=== PATIENT | female | born 2000 | race Caucasian/White ===

== ENCOUNTER 2022-07-06 17:00 | Emergency (ER) | payer MEDICAID, SELFPAY ==
[2022-07-06 17:18] VITALS: BP 120/82; PULSE 124; RESP 18; TEMP 36.3; O2SAT 98; BMI 25.6
--- NOTE | 2022-07-06 17:59 | ED_ITS ---
HPI - Psych General Chief Complaint: Psychiatric Problem/Disorder Stated Complaint: Mental Health Time Seen by Provider: 07/06/22 17:34 History of Present Illness HPI Narrative: This 22-year-old female comes in with depression and anxiety symptoms. She has had ongoing depression symptoms but things have worsened significantly in the last week as her boyfriend broke up with her. She had plans to take a semester off from her school in [facility] and stay with his family and work on her mental health and now these plans have been forced to change. She did state to a therapist that she has some thoughts of suicide but she does not have any specific plan and has never attempted to harm herself to end her life in the past. She states that she has done some self-harm for other reasons but no such actions currently. She is tearful and persistently crying over her circumstances. She states that she is sleeping too much. She denies using alcohol or street drugs. She is taking bupropion and this dose was increased a couple weeks ago. She is also taking duloxetine. She has been on other antidepressant medicines in the past. Related Data Home Medications Medication Instructions Recorded Confirmed bupropion HCl 300 mg 24 hr tablet, mg PO 07/06/22 extended release duloxetine 60 mg capsule,delayed mg PO 07/06/22 release Previous Rx's Medication Instructions Recorded lorazepam 0.5 mg tablet (Ativan) 0.5 mg PO BID PRN #10 tabs 07/06/22 Allergies Allergy/AdvReac Type Severity Reaction Status Date / Time No Known Drug Allergies Allergy Verified 07/06/22 17:26 Review of Systems Status of ROS: Reports: 10 or more systems reviewed and unremarkable except as noted in History and below Narrative: Constitutional: No fevers, no weight gain or loss. Eyes: No discharge. No vision changes. HENT: No congestion, no sore throat, no ear pain. Cardiovascular: No chest pain, no palpitations. Respiratory: No shortness of breath, no wheezes, no cough. Gastrointestinal: No abdominal pain, no vomiting, no diarrhea. Genitourinary: No dysuria, no hematuria. Musculoskeletal: Normal range of motion. Skin: No rashes, no pruritis. Neurological: No dizziness, weakness, sensory change, speech change. Endo/Heme/Allergies: No bruising or bleeding. No polydipsia. Pysch: Depression and anxiety symptoms with occasional thoughts of suicide without any specific plan. All other systems reviewed and are negative. Exam Narrative: Exam Narrative: Constitutional: Well-developed, well-nourished, no acute distress. HEENT: Normocephalic, atraumatic. Neck: Normal range of motion. Nontender. Supple. Heart: Regular. No murmurs. Normal rate. Intact distal pulses. Lungs: Clear to auscultation. No chest discomfort. No wheezes, rhonchi, or rales. Abdomen: Normal bowel sounds. Nontender. No rebound tenderness. Genitalia: Deferred. Back: No midline tenderness. Normal range of motion. Extremities: Normal range of motion. No injury. Skin: Intact. No rash. Warm. No erythema or pallor. Neurologic: No altered sensation. No weakness. Alert and oriented. Psychiatric: Anxiety and depression symptoms. Persistent crying. Suicidal thoughts without any specific plan. Nursing notes and vitals signs are reviewed. Const: Vital Signs, click to edit/add: Vital Signs - 24 hr 07/06/22 17:18 Temperature 97.4 F L Pulse Rate [Right Pulse Oximeter] 124 H Respiratory Rate 18 Blood Pressure [Ri ght Upper Arm] 120/82 Pulse Oximetry 98 Oxygen Delivery Me thod Room Air Course Vital Signs Vital signs: Initial Vital Signs Temperature 97.4 F L 07/06/22 17:18 Temperature Source Temporal Artery Scan 07/06/22 17:18 Pulse Rate 124 H 07/06/22 17:18 Respiratory Rate 18 07/06/22 17:18 Blood Pressure 120/82 07/06/22 17:18 Blood Pressure Mean 94 07/06/22 17:18 Blood Pressure Position Sitting 07/06/22 17:18 Pulse Oximetry 98 07/06/22 17:18 Oxygen Delivery Method 07/06/22 17:18 Vital Signs Temperature 97.4 F L 07/06/22 17:18 Pulse Rate 124 H 07/06/22 17:18 Respiratory Rate 18 07/06/22 17:18 Blood Pressure 120/82 07/06/22 17:18 Pulse Oximetry 98 07/06/22 17:18 Oxygen Delivery Method 07/06/22 17:18 Temperature 97.4 F L 07/06/22 17:18 Pulse Rate 124 H 07/06/22 17:18 Respiratory Rate 18 11/23/22 17:18 Blood Pressure 120/82 07/06/22 17:18 Pulse Oximetry 98 07/06/22 17:18 Oxygen Delivery Method 07/06/22 17:18 MDM - Psych MDM Narrative Medical decision making narrative: This 22-year-old female comes in with worsening depression and anxiety symptoms. She and her father agreed to have a [facility] mental assessment. This was completed and recommendations are made for for follow-up. Everyone is in agreement that this patient is okay to return home and is safe enough to herself. She did receive Ativan 0.5 mg orally in this also brought some benefit to her current symptoms. I did prescribe 10 of these tablets in indicated that this is not a good long-term plan but can be used as needed for some more difficult times she may be dealing with currently. Discharge Plan Discharge Clinical Impression: Depression, Acute anxiety Patient Disposition: Home, Self-Care Condition: Stable Additional Instructions: Take medication as needed and indicated. Follow up with MD or return if worsening. Prescriptions: New lorazepam [Ativan] 0.5 mg tablet 0.5 mg PO BID PRNQty: 10 0RF No Action bupropion HCl 300 mg tablet extended release 24 hr PO Label Comments: TAKE 1 TABLET BY MOUTH EVERY MORNING duloxetine 60 mg capsule,delayed release(DR/EC) PO Follow Up/Referrals: Provider,Not a Local [Primary Care Provider] - Stand Alone Forms: [employer] Info Instructions
[2022-07-06] MEDS: LORazepam 0.5 MG TABLET PO (18:06)
== END 2022-07-06 20:07 | disposition home or self-care (01) ==
PROVIDERS: Emergency Provider Emergency Medicine Emergency Medical Services
DX: F41.9 Anxiety disorder, unspecified (principal)
CPT/HCPCS: 99283; 99284; 99285; A9270